=== PATIENT | male | born 1965 | race Hispanic/Latino ===

== ENCOUNTER → 2023-10-20 | Outpatient (REF) | payer BC ==
[~2023-10-20] MED LIST: TRYPSIN/BALSAM PERU/CASTOR OIL ONE
== END ==
LOC: WCC 07:56
PROVIDERS: ATTEND Podiatrist Foot & Ankle Surgery
DX: E11.621 Type 2 diabetes mellitus with foot ulcer (principal); E11.65 Type 2 diabetes mellitus with hyperglycemia; L97.526 Non-pressure chronic ulcer of other part of left foot with bone involvement without evidence of necrosis; M20.42 Other hammer toe(s) (acquired), left foot; L84 Corns and callosities

== ENCOUNTER → 2023-11-03 | Outpatient (REF) | payer BC | LOC: WCC 08:29 | PROVIDERS: ATTEND Podiatrist Foot & Ankle Surgery | DX: E11.65 Type 2 diabetes mellitus with hyperglycemia (principal); E11.621 Type 2 diabetes mellitus with foot ulcer; L97.526 Non-pressure chronic ulcer of other part of left foot with bone involvement without evidence of necrosis; M20.42 Other hammer toe(s) (acquired), left foot; L84 Corns and callosities ==